=== PATIENT | male | born 1945 | race Caucasian/White ===

== ENCOUNTER 2017-05-26 15:24 | Outpatient (CLI) | payer MEDICARE ==
--- NOTE | 2017-05-26 20:00 | XRAY Report ---
EXAM: LEFT KNEE RADIOGRAPHY EXAM DATE: 05/26/2017 03:44 PM. CLINICAL HISTORY: ARTHRALGIA KNEE/PATELLA/TIBIA/FIBULA. COMPARISON: None. TECHNIQUE: 3 views. FINDINGS: Bones: Osteopenia. Mild thickening of proximal fibula compatible with old trauma. No acute fracture o r other bone lesion. Joints: Mild 3 compartment joint space narrowing. No definite effusion. Soft Tissues: Unremarkable. IMPRESSION: Minimal degenerative changes. [facility] Referring Provider Line: [phone] SITE ID: [id number]
== END 2017-05-26 15:25 | disposition home or self-care (01) ==
LOC: DI.N 15:24
PROVIDERS: ATTEND Family Medicine
DX: M17.12 Unilateral primary osteoarthritis, left knee (principal)

== ENCOUNTER 2018-07-17 01:29 | Observation (INO) | payer MEDICARE ==
[2018-07-17] MEDS ORDERED: SODIUM CHLORIDE 0.9% 1,000 ML IV ONE (02:14)
[2018-07-17 02:38] LABS: BASOPHILS % (AUTO) 0.9 %; EOSINOPHILS # (AUTO) 0.1 10^3/uL (0.0-0.7); EOSINOPHILS % (AUTO) 2.8 %; HGB - HEMOGLOBIN 14.8 g/dL (14.0-18.0); LYMPHOCYTES # (AUTO) 0.8 10^3/uL (1.5-3.5); LYMPHOCYTES % (AUTO) 20.9 %; MEAN CORPUSCULAR VOLUME 96.9 fL (80.0-94.0); MEAN PLATELET VOLUME 8.1 fL (7.4-11.4); MONOCYTES # (AUTO) 0.4 10^3/uL (0.0-1.0); MONOCYTES % (AUTO) 11.2 %; NEUTROPHILS # (AUTO) 2.5 10^3/uL (1.5-6.6); NEUTROPHILS % (AUTO) 64.2 %; PLT - PLATELET COUNT 212 10^3/uL (130-450); RED BLOOD COUNT 4.48 10^6/uL (4.70-6.10); RED CELL DISTRIBUTION WIDTH 13.3 % (12.0-15.0); WHITE BLOOD COUNT 3.8 x10^3/uL (4.8-10.8)
[2018-07-17 02:44] LABS: CREATININE 0.9 mg/dL (0.6-1.2)
[2018-07-17] MEDS ORDERED: ASPIRIN CHEW 81 MG TABLET PO STA (03:07)
[2018-07-17] MEDS ORDERED: NITROGLYCERIN SL 0.4 MG TABLET SL STA (03:07)
[2018-07-17] MEDS ORDERED: METOPROLOL 5 MG/5 ML VIAL IVP STA (03:08)
--- NOTE | 2018-07-17 03:09 | ED Physician Documentation ---
History of Present Illness - Stated complaint Stated Complaint: RAPID HEART RATE - Chief complaint Chief Complaint: Cardiac - Additonal information Additional information: hx from pt 73 male hx HTN non smoker got home from work late about 930 had a drink and dinner and was resting watching TV about 1230 he developed irreg rapid palp, chest discomfort rad to left face and arm, nausea sx were severe for about 20 min he went to talk to his sx continued decided to come to the ER now sx have subsided but are not quite completely gone yet, he still has a little bit of chest pain no fever cough no recent travel no leg swelling hx HTN no hx CAD or a fib Review of Systems Constitutional: denies: Fever, Chills Cardiac: reports: Chest pain / pressure, Palpitations Respiratory: denies: Dyspnea, Cough GI: reports: Nausea Musculoskeletal: denies: Extremity swelling Neurologic: reports: Generalized weakness Endocrine: denies: Easy bruising / bleeding Immunocompromised: denies: Immunocompromised PD PAST MEDICAL HISTORY - Past Medical History Cardiovascular: Hypertension Respiratory: None Endocrine/Autoimmune: None GI: GERD, Colon polyps : None, Benign prostate hypertrophy HEENT: None Psych: None Musculoskeletal: None Derm: None - Past Surgical History General: Colonoscopy HEENT: Cataracts - Present Medications Home Medications: Ambulatory Orders Medication Instructions Recorded Confirmed Dexlansoprazole [Dexilant] 60 mg ORAL BID 05/08/14 05/08/14 Metoprolol Tartrate 50 mg ORAL BID 05/08/14 05/09/14 Azithromycin [Zithromax] 250 mg PO DAILY #6 tablet 09/14/14 Neomycin/Poly/Dexam Ophth Oint 0.25 inch EACHEYE BID #1 tube 09/14/14 [Maxitrol Ophth Oint] - Allergies Allergies/Adverse Reactions: Allergies Allergy/AdvReac Type Severity Reaction Status Date / Time No Known Drug Allergies Allergy Verified 07/17/18 01:40 - Social History Does the pt smoke?: No Smoking Status: Never smoker Does the pt drink ETOH?: Yes Does the pt have substance abuse?: No PD ED PE NORMAL - Vitals Vital signs reviewed: Yes - Neck Neck: Supple, no meningeal sign - Cardiac Cardiac: RRR - Respiratory Respiratory: No respiratory distress - Abdomen Abdomen: Soft, Non tender - Derm Derm: Normal color - Extremities Extremities: No tenderness to palpate, No edema, No calf tenderness / cord - Neuro Neuro: Alert and oriented X 3 Results - Vitals Vitals: Vital Signs - 24 hr 07/17/18 07/17/18 07/17/18 01:38 03:19 03:40 Temperature 36.6 C Heart Rate 96 80 70 Respiratory 17 20 17 Rate Blood Pressure 154/84 H 139/88 H 152/83 H O2 Saturation 97 98 97 Oxygen O2 Source Room air - EKG (time done) 0145 Rate: Rate (enter#) (90) Rhythm: NSR [place]: Normal Intervals: Normal MI QRS: Normal Ischemia: Normal ST segments - Labs Labs: Laboratory Tests 07/17/18 07/17/18 07/17/18 02:25 02:25 02:25 WBC 3.8 L RBC 4.48 L Hgb 14.8 Hct 43.5 MCV 96.9 H MCH 33.0 H MCHC 34.0 RDW 13.3 Plt Count 212 MPV 8.1 Neut # (Auto) 2.5 Lymph # (Auto) 0.8 L [place] # (Auto) 0.4 Eos # (Auto) 0.1 Baso # (Auto) 0.0 Absolute Nucleated RBC 0.00 Nucleated RBC % 0.0 Sodium 140 Potassium 3.8 Chloride 107 Carbon Dioxide 22 Anion Gap 11.0 BUN 16 Creatinine 0.9 Estimated GFR (MDRD) 82 L Glucose 161 H Calcium 9.0 Troponin I < 0.04 - Rads (name of study) CXR Radiology: See rad report (no acute process, nl mediastinum no cap no effusion) PD MEDICAL DECISION MAKING - ED course ED course: sx concerning for ACS gave asa nitro BB Departure - Departure Disposition: ED Place in Observation Clinical Impression: Chest pain Qualifiers: Chest pain type: unspecified Qualified Code(s): R07.9 - Chest pain, unspecified Condition: Good
--- NOTE | 2018-07-17 03:51 | XRAY Report ---
Reason: chest pain Procedure Date: 07/17/2018 Accession Number: [id number] / [id number] Procedure: XR - Chest 1 View X-Ray CPT Code: 85169 FULL RESULT: EXAM: CHEST RADIOGRAPHY EXAM DATE: 07/17/2018 03:32 AM. CLINICAL HISTORY: Chest pain. COMPARISON: 11/08/2010 3:33 PM. TECHNIQUE: 1 view. FINDINGS: Lungs/Pleura: No focal opacities evident. No pleural effusion. No pneumothorax. Mediastinum: Within exam limitations, the cardiomediastinal contour is normal. Other: None. IMPRESSION: Normal single view chest. [facility]
[2018-07-17] MEDS ORDERED: HYDROcod/ACETAM 5/325 MG TABLET PO PRN (04:26)
[2018-07-17] MEDS ORDERED: MORPHINE 2 MG/ML CARPUJECT IVP PRN (04:26)
[2018-07-17] MEDS ORDERED: SODIUM CHLORIDE FLUSH 0.9% 10 ML SYRINGE IVP PRN (04:26)
[2018-07-17] MEDS ORDERED: MAG HYDROX/AL HYDROX/SIMETH 30 ML UDC PO STA (04:33)
[2018-07-17 05:42] LABS: CALCIUM 8.5 mg/dL (8.5-10.3); CREATININE 0.9 mg/dL (0.6-1.2)
[2018-07-17 05:51] LABS: CHOL/HDL RATIO 4.8 (<5.0); CHOLESTEROL 187 mg/dL; HDL CHOLESTEROL 39 mg/dL; LDL CHOLESTEROL,CALCULATED 81 mg/dL; LDL/HDL RATIO 2.1 (<3.6); VLDL CHOLESTEROL 67 mg/dL
--- NOTE | 2018-07-17 06:11 | HISTORY & PHYSICAL EXAMINATION ---
DATE OF SERVICE: 07/17/2018 Physician: Gabriela Arreola MD CHIEF COMPLAINT: Palpitation. 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 He was a good historian and reported the following: He usually works between 10 a.m. and 7 p.m. Yesterday he had an unusually busy day at work and worked until 9:30 p.m., he got home after 10. At that time, he ate dinner and had a drink. He reports that he usually drinks about 6 ounces of alcohol at night. After he goes home, he eats, watches TV and relaxes having a drink. He went on with his usual routine, sat down to watch TV, which he usually does until around 2 a.m. He was sitting and occasionally dozed off and slumped over. In any case, shortly after midnight around 12:30, he developed sudden onset of palpitation. He felt like his heart was racing, and his chest was pounding. Subsequently he developed a feeling of flushed face, chest discomfort, which he rated as a 4/10 in intensity located on the left side substernally. The discomfort radiated to his left arm and left neck and face. He checked his blood pressure, it was 180/100. His heart rate was in the 90s, which is unusual. His heart rate usually is around 60, and his blood pressure is usually in the normal range. The discomfort with the palpitation and the chest discomfort lasted for about 20 minutes. It worried him. He never experienced similar pain or discomfort in the past. He woke his up, and the drove him to the ER. The patient reported that he underwent cardiac stress test about 20 years ago, had no recent cardiac evaluation. Has history of hypertension and gastroesophageal reflux, usually these medical problems are under control. Upon presentation to the ER, patient was found hemodynamically stable and afebrile. First troponin was negative. EKG showed normal sinus rhythm was nonischemic. The patient had minor laboratory abnormalities such as white blood cell count at 3.8. Otherwise were unremarkable. Chest x-ray showed no acute infiltrate. At the ER, the patient received IV metoprolol for uncontrolled hypertension. He also received aspirin and nitroglycerin. Throughout the ER stay, the patient remained on cardiac/vascular sonographer, and no cardiac arrhythmia was seen. PRIMARY CARE PHYSICIAN: Dr. Eduardo PAST MEDICAL HISTORY 1. Hypertension. 2. Gastroesophageal reflux. OUTPATIENT MEDICATIONS Included: 1. Metoprolol. 2. Norvasc. 3. Dexilant. CODE STATUS: FULL CODE. 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 He is physically active, and he drives. Regarding his habits, he is a lifelong nonsmoker. He drinks about 6 ounces of alcohol nightly. It is equivalent to about 2 beers. FAMILY HISTORY: Father had pacemaker implant around age 70. He at age 86. REVIEW OF SYSTEMS: Please see pertinent positives listed above at history of present illness. I completed 12 systems review, which was otherwise negative. Patient denied all other complaints, which included no nausea, vomiting. No abdominal pain. No diarrhea. No lower extremity swelling. No shortness of breath. PHYSICAL EXAMINATION VITAL SIGNS: Blood pressure 150/80, temperature 36.6 Celsius, heart rate between 70 and 96, respiratory rate 17, oxygen saturation 98% on room air. GENERAL: The patient is a well-developed, nontoxic-appearing male who was not in distress. SKIN: Without jaundice or pallor. LYMPHATIC: No lymphedema. CVS: S1, S2. Regular rate and rhythm. No murmur, rub, or gallop. RESPIRATORY: Good air entry throughout without wheezes or crackles. ABDOMEN: Soft, benign, nontender. MUSCULOSKELETAL: There was chest wall tenderness and tenderness around the left nipple without any palpable collection or mass or any visible erythema or abnormality. Otherwise, there was no joint swelling or muscle tenderness. NEUROLOGIC: Alert, oriented, nonfocal. PSYCHIATRIC: Cooperative, pleasant to talk to. ASSESSMENT AND PLAN: Patient is a 73-year-old male with cardiac risk factors of hypertension, age, gender, possible family history father having a pacemaker implant and possibly heart disease. Patient presents with a somewhat sudden onset of chest discomfort, which lasted for about 20 minutes was associated with palpitations. His clinical history could be consistent or typical for cardiac ischemia. Patient is getting admitted and undergoing rapid cardiac rule out. It is reassuring that he had a normal EKG, stable hemodynamics, and a negative troponin. DIAGNOSES 1. Chest pain. Negative ER workup; however, could have typical features for cardiac ischemia. 2. Uncontrolled hypertension in the setting of pain and discomfort. 3. Palpitations, possibly with a short episode of cardiac arrhythmia. During the ER stay, no arrhythmia was seen. 4. Chest wall and left nipple tenderness, seems musculoskeletal on physical exam. 5. History of gastroesophageal reflux. PLAN AND ORDERS 1. Patient is getting admitted under observation. He is undergoing rapid cardiac rule-out. If he rules out per enzyme criteria, he will undergo further risk stratification with stress test and echocardiogram. For now, I ordered serial troponins 4 hours apart. Last troponin will be around 11:00 a.m. Therefore, the patient could still complete a stress test this afternoon and be discharged later today if his workup will be negative. For now, I will allow the patient to have a diet, and 4 hours prior to stress test he should be n.p.o. I ordered echocardiogram, and a stress test should be ordered if troponins remain negative 2. We will continue outpatient medications including metoprolol and Norvasc. 3. We will continue proton pump inhibitor for reflux plus I added Maalox. 4. Monitor on telemetry. 5. Care plan was discussed with patient and he agreed. 6. DVT prophylaxis. Time spent with the care of this patient was 50 minutes. ATTESTATION: I certify that a reasonable expectation for this patient is to discharge within 48 hours. He is getting admitted under observation. TD: 07/17/2018 05:45 RODRI
[2018-07-17] MEDS ORDERED: DEXLANSOPRAZOLE 60 MG ORAL SCH (09:00)
[2018-07-17] MEDS ORDERED: POLYETHYLENE GLYCOL 3350 17 GM PACKET PO SCH (09:00)
[2018-07-17] MEDS ORDERED: SODIUM CHLORIDE FLUSH 0.9% 10 ML SYRINGE IVP SCH (09:00)
[2018-07-17] MEDS ORDERED: amLODIPine 5 MG TABLET PO SCH (09:00)
[2018-07-17] MEDS ORDERED: NEOMYCIN/POLYMYX/DEXAMETH OPHTH OINT EACHEYE SCH (09:00)
[2018-07-17] MEDS ORDERED: METOPROLOL TARTRATE 50 MG TABLET PO SCH (09:00)
--- NOTE | 2018-07-17 13:20 | PROCEDURE REPORT ---
Hospitalist Procedure Note - Procedure Note Procedure Note: EKG treadmill stress test: At rest patient was asymptomatic with a heart rate of 61 and blood pressure of 156/80. Patient's EKG showed normal sinus rhythm without any ST elevations or ischemic changes. Initially patient responded appropriately to stress as patient's heart rate increased appropriately and patient continued to be asymptomatic. The patient reached target heart rate of 124 after 9 minutes of exercise. At this point the patient began to complain of chest pain. Chest pain was located in the left side of the chest and localized, nonradiating, mild 4 out of 10. He stated the pain was similar to what he experienced during his echocardiogram. The pain was reproducible. During this stage of exercise the patient also began having some mild EKG changes. When the patient's heart rate got up to 135 the patient began to have ST depressions in leads V2 through V6. The patient appears to have also had a lot of artifact at this time. These ST depressions resolved with discontinuation of exercise. The patient reached 12 METs the patient's chest pain did continue after exercise was stopped. The patient's pain eventually improved. During the recovery phase the patient became significantly hypertensive with blood pressure of 184/84. Conclusion: Abnormal EKG treadmill stress test. Patient had chest pain/chest tightness at and above target heart rate of 124. Patient had mild ST changes in the anterolateral leads with heart rate above 124. Patient's symptoms and EKGs changes seem to improve with rest. We will await myocardial perfusion imaging to compare these findings. We will need to talk to cardiology before patient can be discharged.
[2018-07-17] MEDS ORDERED: CARBOXYMETHYLCELLULOSE OPHTH DROPS EACHEYE PRN (14:19)
[2018-07-17] MEDS ORDERED: DEXLANSOPRAZOLE 60 MG PO SCH (14:48)
--- NOTE | 2018-07-17 14:48 | Nuclear Medicine Report ---
Reason: CP Procedure Date: 07/17/2018 Accession Number: [id number] / [id number] Procedure: NM - Myocardial Perfusion STR/RST CPT Code: FULL RESULT: EXAM: SINGLE-ISOTOPE EXERCISE STRESS TEST. SINGLE-ISOTOPE AND ONE-DAY REST/STRESS MYOCARDIAL PERFUSION SCANS WITH TOMOGRAPHIC IMAGING, QUANTITATIVE ANALYSIS, WALL MOTION ANALYSIS AND CALCULATION OF EJECTION FRACTION. EXAM DATE: 07/17/2018 10:04 AM. CLINICAL HISTORY: Chest pain. COMPARISON: None available. TECHNIQUE: A rest myocardial perfusion scan was done with tomography after the intravenous administration of 10.4 mCi Tc-99m sestamibi. After an appropriate delay, a treadmill exercise stress was performed according to department protocol. The patient exercised for 10 minutes and 31 seconds. The maximum heart rate was 135 bpm, which was 92% of the maximum predicted heart rate of 146 bpm. At approximately peak heart rate, 42.4 mCi of Tc-99m sestamibi was injected for stress myocardial perfusion scan. Motion correction was applied when appropriate. Gated tomographic images were obtained for wall motion analysis and computation of left ventricular ejection fraction. FINDINGS: On visual analysis, no convincing fixed or reversible perfusion defects. Computer analysis: Summed stress score 2 Summed rest score 2 Summed difference score 0 Wall motion analysis demonstrates no focal wall motion abnormality The left ventricular end-diastolic volume is 86 cc. The left ventricular end-systolic volume is 26 cc. The left ventricular ejection fraction is calculated to be 70%. IMPRESSION: 1. No scintigraphic findings to indicate myocardial ischemia. Negative for infarct. 2. Normal left ventricular ejection fraction of 70%. 3. Normal segmental and global wall motion. 4. Normal left ventricular cavity size, no change with stress. 5. Based on computer analysis, normal exam with no ischemia. [facility]
--- NOTE | 2018-07-17 16:48 | Discharge Plan ---
Discharge Plan Disposition: 01 Home, Self Care Condition: Good Prescriptions: Aspirin [Adult Aspirin Regimen] 81 mg PO DAILY #30 tablet. Atorvastatin Calcium 40 mg PO DAILY #30 tablet Isosorbide Mononitrate ER [Imdur] 30 mg PO DAILY #30 tablet Metoprolol Succinate [Toprol Xl] 50 mg PO BIDWM #60 tablet Diet: Regular Activity Restrictions: Take it easy for the next several days. Shower Restrictions: No Driving Restrictions: No Additional Instructions or Follow Up instructions: You were admitted for acute chest pain accompanied by heart palpitations concerning for cardiac issues. You underwent the usual cardiac testing including telemetry monitoring, EKGs, echocardiogram, and a myocardial perfusion scan/treadmill stress test. A phone consult with Dr. Raulito Blackburn, [facility] cardiology was made in which all pertinent details were reviewed regarding your case. In your case, medical management is the next step to best care for you and ensure wellness. Medical management means adding a medication called Imdur (Isosorbide mononitrate) which is a nitrate used to treat angina or chest pain in order to keep you comfortable. Medical management is also achieved by making the most of the beta alley that you were previously prescribed at home by changing this to an extended release to more efficiently regulate your heart rate and hopefully prevent the heart palpitations. It was also recommended that you follow the standard of Cardiac care with taking a daily baby aspirin 81mg, and a anti-cholesterol medication. STOP Metoprolol tartrate STOP Norvasc (amlodipine) All medications have been sent over to your pharmacy of choice and are waiting for you. In speaking with Dr. Blackburn, he suggests to see his partner Dr. Bimal Santana, Cardiology in the [place] location in about 3 weeks. Your PCP will need to please make this referral and he will get a copy of this discharge summary including all test results. Please come back to the ED if you have similar symptoms, dizziness, radiating chest pain, shortness of breath or profound weakness. Thank you for letting us help you out, take care, & happy holidays! No Smoking: If you smoke, Please STOP! Call for help. Follow-up with: Terry Eduardo MD [Primary Care Provider] -
[2018-07-17] MEDS ORDERED: ISOSORBIDE MONONITRATE ER 30 MG TABLET PO SCH (16:49)
[2018-07-17] MEDS ORDERED: METOPROLOL SUCCINATE 50 MG TABLET PO SCH (17:00)
[2018-07-17 17:30] VITALS: BP 151/77
--- NOTE | 2018-07-17 19:23 | DISCHARGE SUMMARY ---
Discharge Summary Admit Date: 07/17/18 Discharge Date: 07/17/18 Discharging Provider: AGNES De Leon Code Status: Attempt Resuscitation Condition at Discharge: Good Discharge Disposition: 01 Home, Self Care - DIAGNOSES Admission Diagnoses: Chest pain, unspecified (R07.9) Palpitations (R00.2) Discharge Diagnoses with Status of Each Condition: Angina at rest (I20.8) improved, medical management advised. New prescription for Imdur with his first dose given prior to discharge. Palpitations (R00.2) resolved. Hypertension (I10) chronic, continue meds. Impotence (N52.9) chronic, stable. GERD (gastroesophageal reflux disease) (K21.9) chronic, PPIs from home to be continued. Seasonal allergies (J30.2) chronic, controlled. - HPI History of Present Illness: Silvestre Mendez is a 73-year old male with a past medical history of hypertension, GERD, erectile dysfunction and nocturia. The patient still works as an regulatory attorney. He was a good historian and reports the following; He usually works between 10AM and 7PM. Yesterday he had an unusually busy day at work and worked until 9:30PM, he got home after 10PM. At that time, he ate dinner and had a drink. He reports that he usually drinks about 6 ounces of alcohol per night. After he goes home, he eats, watches TV and relaxes by having a drink. He went on with his usual routine, sat down to watch TV, which he usually does until around 2AM. He was sitting and occasionally dozed off and slumped over. Around 12 midnight, he developed sudden onset palpitations. He felt like his heart was racing, and his chest was pounding. Subsequently he developed a feeling of a left uni-lateral flushed sensation on his face, chest discomfort, rated as a 4 out of 10 in intensity located on the left side substernaly. The discomfort radiated to his left arm, left neck, jaw, face and improved within about 20 minutes. He checked his blood pressure which he reports as 180/100. His heart rate was in the 90's which he noted as being unusual as he usually runs around 60. The thing that triggered him to come to the ED was the overwhelming feeling of illness and the fact that the pain would not completely subside. His drove him to the ED and after arriving, his symptoms completely subsided after receiving 2 baby aspirins, oral nitroglycerine and IV morphine. The patient underwent his last cardiac stress testing about 20 years ago, but nothing since that time. His first troponin was negative and he was admitted for an observation stay with plans for a myocardial perfusion treadmill test later today if all troponins are negative and the echo shows no signs of acute infarcts. - HOSPITAL COURSE Hospital Course: The patient underwent the usual cardiac testing including telemetry monitoring, EKGs, echocardiogram, and a myocardial perfusion scan/treadmill stress test. A phone consult with Dr. Raulito Blackburn, [facility] cardiology was made in which all pertinent details were reviewed regarding this case. He suggested to start the patient on essential preventative medications; ASA 81mg, atorvastatin, change metoprolol to succinate, and start Imdur to medically manage. The patient was chest pain free at the time of discharge and was taken by private car with his to return home. PCP should order a cardiology consult and Dr. Santana will see him at the [place] office in about 3 weeks. - ALLERGIES Allergies/Adverse Reactions: Allergies Allergy/AdvReac Type Severity Reaction Status Date / Time No Known Drug Allergies Allergy Verified 07/17/18 01:40 - MEDICATIONS Home Medications: Ambulatory Orders Medication Instructions Recorded Confirmed Aspirin [Adult Aspirin Regimen] 81 mg PO DAILY #30 tablet. 07/17/18 Atorvastatin Calcium 40 mg PO DAILY #30 tablet 07/17/18 Dexlansoprazole [Dexilant] 60 mg PO BID 07/17/18 07/17/18 Flaxseed Oil 1,000 mg PO BID 07/17/18 07/17/18 Glucosamine HCl 1,500 mg PO BID 07/17/18 07/17/18 Ibuprofen 600 mg PO BID PRN MDD 2400 07/17/18 07/17/18 Isosorbide Mononitrate ER [Imdur] 30 mg PO DAILY #30 tablet 07/17/18 L.acid/L.casei/B.bif/B.elena/Fos 1 cap PO DAILY 07/17/18 07/17/18 [Probiotic Blend Capsule] Loratadine [Claritin] 10 mg PO BID PRN 07/17/18 07/17/18 Metoprolol Succinate [Toprol Xl] 50 mg PO BIDWM #60 tablet 07/17/18 Multivitamin [Multiple Vitamins] 1 tab PO DAILY 07/17/18 07/17/18 [place]-3/Dha/Epa/Fish Oil [Fish Oil 1,000 mg PO DAILY 07/17/18 07/17/18 1,000 mg Softgel] [place] 160 mg PO DAILY 07/17/18 07/17/18 hydroCHLOROthiazide 50 mg PO DAILY 07/17/18 07/17/18 [Hydrochlorothiazide] - PHYSICAL EXAM AT DISCHARGE General Appearance: positive: No acute distress, Alert Eyes Bilateral: positive: Normal inspection, PERRL ENT: positive: ENT inspection nml, Pharynx nml, No signs of dehydration Neck: positive: Thyroid nml, No JVD, Trachea midline Respiratory: positive: Chest non-tender, No respiratory distress, Breath sounds nml Cardiovascular: positive: Regular rate & rhythm, No gallop, Systolic murmur Peripheral Pulses: positive: 2+ Abdomen: positive: Non-tender, Nml bowel sounds, Other (rounded, soft) Back: positive: Nml inspection Skin: positive: Color nml, No rash, Warm, Dry Extremities: positive: Non-tender, Full ROM, Nml appearance, No pedal edema Neurologic/Psychiatric: positive: Oriented x3, CN's nml (2-12), Motor nml, Sens ation nml, Mood/affect nml Reflexes: Bicep (R): 3+, Bicep (L): 3+, Ankle (R): 3+, Ankle (L): 3+ - LABS Result Diagrams: 07/17/18 02:25 07/17/18 05:20 - DIAGNOSTIC IMAGING Diagnostic Imaging Results: Prelim report reviewed, Final report reviewed Diagnostic Imaging Results Comments: EXAM: CHEST RADIOGRAPHY EXAM DATE: 07/17/2018 03:32 AM. IMPRESSION: Normal single view chest. EXAM: SINGLE-ISOTOPE EXERCISE STRESS TEST. SINGLE-ISOTOPE AND ONE-DAY REST/STRESS MYOCARDIAL PERFUSION SCANS WITH TOMOGRAPHIC IMAGING, QUANTITATIVE ANALYSIS, WALL MOTION ANALYSIS AND CALCULATION OF EJECTION FRACTION. EXAM DATE: 07/17/2018 10:04 AM. IMPRESSION: 1. No scintigraphic findings to indicate myocardial ischemia. Negative for infarct. 2. Normal left ventricular ejection fraction of 70%. 3. Normal segmental and global wall motion. 4. Normal left ventricular cavity size, no change with stress. 5. Based on computer analysis, normal exam with no i schemia. ECHOCARDIOGRAM: Preliminary results show: SR with PVCs, No wall motion abn ormalities, EF 60-65%, severe increase in LA volume index, mild RA enlargement. - FOLLOW UP Follow Up: Disposition: Home, Self Care Prescriptions: Aspirin [Adult Aspirin Regimen] 81 mg PO DAILY #30 tablet Atorvastatin Calcium 40 mg PO DAILY #30 tablet Isosorbide Mononitrate ER [Imdur] 30 mg PO DAILY #30 tablet Metoprolol Succinate [Toprol Xl] 50 mg PO BIDWM #60 tablet Activity Restrictions: Take it easy for the next several days. Additional Instructions or Follow Up instructions: You were admitted for acute chest pain accompanied by heart palpitations concerning for cardiac issues. You underwent the usual cardiac testing including telemetry monitoring, EKGs, ec hocardiogram, and a myocardial perfusion scan/treadmill stress test. A phone consult with Dr. Raulito Blackburn, [facility] cardiology was made in which all pertinent details were reviewed regarding your case. In your case, medical management is the next step to best care for you and ensure wellness. Medical management means adding a medication called Imdur (Isosorbide mononitrate) which is a nitrate used to treat angina or chest pain in order to keep you comfortable. Medical management is also achieved by making the most of the beta alley that you were previously prescribed at home by changing this to an extended release to more efficiently regulate your heart rate and hopefully prevent the heart palpitations. It was also recommended that you follow the standard of Cardiac care with taking a daily baby aspirin 81mg, and a anti-cholesterol medication. STOP Metoprolol tartrate STOP Norvasc (amlodipine) All medications have been sent over to your pharmacy of choice and are waiting for you. In speaking with Dr. Blackburn, he suggests to see his partner Dr. Bimal Santana, Cardiology in the [place] location in about 3 weeks. Your PCP will need to please make this referral and he will get a copy of this discharge summary including all test results. Please come back to the ED if you have similar symptoms, dizziness, radiating chest pain, shortness of breath or profound weakness. Thank you for letting us help you out, take care, & happy holidays! - TIME SPENT Time Spent in Discharge (Minutes): 55
== END 2018-07-17 17:55 | disposition home or self-care (01) ==
LOC: ED 01:29 → OBS 04:26
PROVIDERS: ADMIT Internal Medicine; ATTEND Nurse Practitioner
DX: I20.8 Other forms of angina pectoris (principal); I11.9 Hypertensive heart disease without heart failure; K21.9 Gastro-esophageal reflux disease without esophagitis; Z79.899 Other long term (current) drug therapy
CPT/HCPCS: 36415; 71045; 78452; 80048; 80061; 83880; 84484; 85025; 85379; 93005; 93017; 93306; 96361; 96374; 99284; A9270; A9500; G0378; 83721; 99283

== ENCOUNTER 2018-08-29 12:38 | Emergency (ER) | payer MEDICARE ==
[2018-08-29 13:18] LABS: BASOPHILS % (AUTO) 0.9 %; EOSINOPHILS # (AUTO) 0.1 10^3/uL (0.0-0.7); EOSINOPHILS % (AUTO) 1.5 %; HGB - HEMOGLOBIN 14.1 g/dL (14.0-18.0); LYMPHOCYTES # (AUTO) 0.7 10^3/uL (1.5-3.5); LYMPHOCYTES % (AUTO) 17.4 %; MEAN CORPUSCULAR HEMOGLOBIN 33.3 pg (27.0-31.0); MEAN CORPUSCULAR HGB CONC 34.9 g/dL (32.0-36.0); MEAN CORPUSCULAR VOLUME 95.5 fL (80.0-94.0); MEAN PLATELET VOLUME 8.1 fL (7.4-11.4); MONOCYTES # (AUTO) 0.4 10^3/uL (0.0-1.0); MONOCYTES % (AUTO) 10.1 %; NEUTROPHILS # (AUTO) 2.9 10^3/uL (1.5-6.6); NEUTROPHILS % (AUTO) 70.1 %; PLT - PLATELET COUNT 190 10^3/uL (130-450); RED BLOOD COUNT 4.22 10^6/uL (4.70-6.10); RED CELL DISTRIBUTION WIDTH 13.1 % (12.0-15.0); WHITE BLOOD COUNT 4.1 x10^3/uL (4.8-10.8)
[2018-08-29 13:28] LABS: ALBUMIN/GLOBULIN RATIO 1.5 (1.0-2.2); BILIRUBIN,TOTAL 0.7 mg/dL (0.2-1.0); TOTAL PROTEIN 6.7 g/dL (6.7-8.2)
--- NOTE | 2018-08-29 13:57 | XRAY Report ---
Reason: chest pain Procedure Date: 08/29/2018 Accession Number: [id number] / [id number] Procedure: XR - Chest 1 View X-Ray CPT Code: 48850 FULL RESULT: EXAM: CHEST RADIOGRAPHY EXAM DATE: 08/29/2018 01:46 PM. CLINICAL HISTORY: Chest pain. COMPARISON: CHEST 1 VIEW 07/17/2018 3:21 AM. TECHNIQUE: 1 view. FINDINGS: Lungs/Pleura: No focal opacities evident. No pleural effusion. No pneumothorax. Mediastinum: Within exam limitations, the cardiomediastinal contour is stable with apparent cardiomegaly likely exacerbated by low lung volumes and AP portable technique. Other: None. IMPRESSION: Stable exam with no acute cardiopulmonary abnormality detected. RADIA
[2018-08-29] MEDS ORDERED: NITROGLYCERIN SL 0.4 MG TABLET SL STA (14:11)
[2018-08-29] MEDS ORDERED: ASPIRIN CHEW 81 MG TABLET PO STA (14:11)
--- NOTE | 2018-08-29 14:14 | ED Physician Documentation ---
PD HPI CHEST PAIN - Stated complaint Stated Complaint: HIGH BP - Chief complaint Chief Complaint: Cardiac - History obtained from History obtained from: Patient - History of Present Illness Timing - duration: Days Timing - details: Waxing and waning Quality: Pressure Location: Substernal Worsened by: Exertion Similar symptoms before: Diagnosis (History of angina.) - Additional information Additional information: The patient is a 73-year-old male who presents with substernal chest pressure and high blood pressure that has been waxing and waning over the past several days. He has measured his blood pressure as high as 218 systolic. He rates his chest pressure at a 2 out of 10 in severity. He reports exertional shortness of breath, but otherwise denies shortness of breath, diaphoresis, nausea or vomiting. He denies cough or fever. One month ago he underwent a nuclear stress test which was negative. 2 weeks ago he was seen by his plant senior manager and his dose of Imdur was doubled from 30 mg daily to 30 mg twice daily. He has nitroglycerin, but has not used it. Review of Systems Constitutional: denies: Fever, Fatigue Ears: denies: Tinnitus/ringing Nose: denies: Congestion Throat: denies: Sore throat Cardiac: reports: Chest pain / pressure. denies: Palpitations Respiratory: reports: Dyspnea (Exertional dyspnea.). denies: Cough GI: denies: Abdominal Pain, Nausea, Vomiting : denies: Dysuria Skin: denies: Rash Musculoskeletal: denies: Neck pain, Extremity swelling Neurologic: denies: Focal weakness, Numbness, Headache PD PAST MEDICAL HISTORY - Past Medical History Cardiovascular: Hypertension Respiratory: None Endocrine/Autoimmune: None GI: GERD, Colon polyps : None, Benign prostate hypertrophy HEENT: None Psych: Anxiety Musculoskeletal: None Derm: None - Past Surgical History General: Colonoscopy HEENT: Cataracts - Present Medications Home Medications: Ambulatory Orders Medication Instructions Recorded Confirmed Aspirin [Adult Aspirin Regimen] 81 mg PO DAILY #30 tablet. 07/17/18 Atorvastatin Calcium 40 mg PO DAILY #30 tablet 07/17/18 Dexlansoprazole [Dexilant] 60 mg PO BID 07/17/18 07/17/18 Flaxseed Oil 1,000 mg PO BID 07/17/18 07/17/18 Glucosamine HCl 1,500 mg PO BID 07/17/18 07/17/18 Ibuprofen 600 mg PO BID PRN MDD 2400 07/17/18 07/17/18 Isosorbide Mononitrate ER [Imdur] 30 mg PO DAILY #30 tablet 07/17/18 L.acid/L.casei/B.bif/B.elena/Fos 1 cap PO DAILY 07/17/18 07/17/18 [Probiotic Blend Capsule] Loratadine [Claritin] 10 mg PO BID PRN 07/17/18 07/17/18 Metoprolol Succinate [Toprol Xl] 50 mg PO BIDWM #60 tablet 07/17/18 Multivitamin [Multiple Vitamins] 1 tab PO DAILY 07/17/18 07/17/18 [place]-3/Dha/Epa/Fish Oil [Fish Oil 1,000 mg PO DAILY 07/17/18 07/17/18 1,000 mg Softgel] Saw [place] 160 mg PO DAILY 07/17/18 07/17/18 hydroCHLOROthiazide 50 mg PO DAILY 07/17/18 07/17/18 [Hydrochlorothiazide] amLODIPine [Norvasc] 5 mg PO DAILY #30 tablet 08/29/18 - Allergies Allergies/Adverse Reactions: Allergies Allergy/AdvReac Type Severity Reaction Status Date / Time No Known Drug Allergies Allergy Verified 07/17/18 01:40 - Social History Does the pt smoke?: No Smoking Status: Never smoker Does the pt drink ETOH?: Yes Does the pt have substance abuse?: No PD ED PE NORMAL - Vitals Vital signs reviewed: Yes (Hypertensive.) - General General: Alert and oriented X 3, Well developed/nourished - HEENT HEENT: Atraumatic, EOMI, Moist mucous membranes - Neck Neck: No adenopathy, No JVD - Cardiac Cardiac: RRR, No murmur - Respiratory Respiratory: No respiratory distress, Clear bilaterally - Abdomen Abdomen: Soft, Non tender - Back Back: No CVA TTP - Derm Derm: No rash - Extremities Extremities: No edema, No calf tenderness / cord - Neuro Neuro: Alert and oriented X 3, No motor deficit, Normal speech Results - Vitals Vitals: Vital Signs - 24 hr 08/29/18 08/29/18 08/29/18 12:47 14:30 14:45 Temperature 36.1 C L Heart Rate 54 L 49 L 47 L Respiratory 20 16 16 Rate Blood Pressure 206/89 H 152/82 H 156/94 H O2 Saturation 98 96 95 08/29/18 16:24 Temperature 36.2 C L Heart Rate 52 L Respiratory 16 Rate Blood Pressure 148/88 H O2 Saturation 96 Oxygen O2 Source Room air - EKG (time done) 12:57 Rate: Rate (enter#) (49) Rhythm: Sinus bradycardia [place]: Normal Intervals: Normal ND QRS: Normal Ischemia: Normal ST segments Compare to prior EKG: Unchanged from prior EKG Computer interpretation: Agree with computer - Labs Labs: Laboratory Tests 08/29/18 08/29/18 08/29/18 13:14 13:14 13:14 WBC 4.1 L RBC 4.22 L Hgb 14.1 Hct 40.3 L MCV 95.5 H MCH 33.3 H MCHC 34.9 RDW 13.1 Plt Count 190 MPV 8.1 Neut # (Auto) 2.9 Lymph # (Auto) 0.7 L [place] # (Auto) 0.4 Eos # (Auto) 0.1 Baso # (Auto) 0.0 Absolute Nucleated RBC 0.00 Nucleated RBC % 0.0 Sodium 136 Potassium 4.2 Chloride 100 L Carbon Dioxide 26 Anion Gap 10.0 BUN 18 Creatinine 1.0 Estimated GFR (MDRD) 73 L Glucose 102 H Calcium 9.0 Total Bilirubin 0.7 AST 28 ALT 33 Alkaline Phosphatase 46 Troponin I < 0.04 Total Protein 6.7 Albumin 4.0 Globulin 2.7 Albumin/Globulin Ratio 1.5 Lipase 33 - Rads (name of study) 1-view CXR Radiology: Prelim report reviewed, EMP read contemporaneously, See rad report (Stable exam with no acute cardiopulmonary abnormality detected.) PD MEDICAL DECISION MAKING - ED course Complexity details: reviewed old records, reviewed results, re-evaluated patient, considered differential, d/w patient, d/w travel sales consultant ED course: The patient's presentation is significant for hypertensive urgency, with stable angina. Electrocardiogram does not reveal acute ischemic changes, and troponin level is normal. There is no evidence to suggest congestive heart failure, and I doubt pulmonary embolus. Treatment in the emergency department included administration of 4 baby aspirin orally, and sublingual nitroglycerin 3. His chest pressure completely resolved with the above treatment. I discussed his condition with Dr. Cordero, his plant senior manager, who advises adding Norvasc to his current prescription medication. Norvasc 5 mg is administered orally prior to discharge. His blood pressure at the time of discharge was significantly improved at 148/88. He is being discharged with prescription for Norvasc 5 mg daily. He will continue his other medications as previously prescribed. I discussed with him the importance of outpatient follow-up, as well as potentially worrisome signs or symptoms that should prompt reevaluation in the emergency department. Departure - Departure Disposition: 01 Home, Self Care Clinical Impression: Hypertensive urgency, Stable angina Condition: Stable Instructions: ED Chest Pain Angina Stable, ED Hypertension Conf Out Of Control Follow-Up: Terry Eduardo MD [Primary Care Provider] - Vega Cordero MD [Physician No Access] - Prescriptions: amLODIPine [Norvasc] 5 mg PO DAILY #30 tablet Comments: Take Norvasc, 5 mg daily as prescribed. Continue your other medications as previously prescribed. Schedule follow-up appointment with Dr. Cordero. Call to schedule an appointment. If you develop recurrent chest discomfort, take sublingual nitroglycerin. If chest discomfort continues despite sublingual nitroglycerin, return to the emergency department. Discharge Date/Time: 08/29/18 16:24
[2018-08-29] MEDS ORDERED: amLODIPine 5 MG TABLET PO STA (15:48)
[2018-08-29 16:44] VITALS: BP 148/88
== END 2018-08-29 16:24 | disposition home or self-care (01) ==
LOC: ED 12:38
DX: I10 Essential (primary) hypertension (principal); I20.8 Other forms of angina pectoris; R00.1 Bradycardia, unspecified; Z79.82 Long term (current) use of aspirin
CPT/HCPCS: 36415; 71045; 80053; 83690; 84484; 85025; 93005; 99283; 99284; A9270